=== PATIENT | female | born 1990 | race Caucasian/White ===

== ENCOUNTER → 2019-02-01 17:41 | Outpatient (CLI) | payer OTHER, SELFPAY ==
[2019-02-01 20:58] LABS: Urine N gonorrhoeae NOT DETECTED
[2019-02-01 21:00] LABS: Urine Chlamydia NOT DETECTED
== END ==
PROVIDERS: Visit Provider Physician Assistant
DX: N30.00 Acute cystitis without hematuria (principal); Z11.3 Encounter for screening for infections with a predominantly sexual mode of transmission
CPT/HCPCS: 87086; 87491; 87591

== ENCOUNTER 2019-05-10 18:41 | Emergency (ER) | payer OTHER, SELFPAY ==
[2019-05-10 19:35] VITALS: BP 121/77; PULSE 70; RESP 12; TEMP 36.4; O2SAT 99
--- NOTE | 2019-05-10 19:35 | ED_ITS ---
HPI - Female Genitourinary <Gisella Jennings PA-C - Last Filed: 05/10/19 20:30> General Chief complaint: Urogenital-Female Stated complaint: BLADDER INFECTION Time Seen by Provider: 05/10/19 18:49 Source: patient Mode of arrival: Ambulatory Limitations: no limitations History of Present Illness HPI Narrative: This healthy 29-year-old female comes to ED secondary to concern for recurrent UTI. Symptoms started late this afternoon and walk-in clinics in her were closed so came here. She states she initially had a sensation of incomplete void, then urinary urgency and frequency this afternoon which have persisted. She then began to have dysuria. She had intercourse a couple of days ago, denies any new discharge or STD concerns. She states she has had a little bit of chills and maybe some mild pain in her left flank since arrival but does not feel like previous kidney infections. She has not had nausea or vomiting. She denies fever. She did take some azo earlier. She denies possibility of , states she had negative test today. Related Data Previous Rx's Medication Instructions Recorded fluconazole 150 mg tablet 150 mg PO ONCE #2 tab 02/01/19 fluconazole [Diflucan] 150 mg PO Q3D #2 tab 05/10/19 nitrofurantoin macrocrystal 100 mg PO Q12H #10 cap 05/10/19 Allergies Allergy/AdvReac Type Severity Reaction Status Date / Time No Known Drug Allergies Allergy Verified 02/01/19 09:37 Review of Systems <Gisella Jennings PA-C - Last Filed: 05/10/19 20:30> Review of Systems ROS Unobtainable: All systems reviewed & are unremarkable except as noted in HPI and below Patient History <Gisella Jennings PA-C - Last Filed: 05/10/19 20:30> Medical History (Updated 05/10/19 @ 20:12 by Gisella Jennings PA-C) Healthy female adult (Chronic) Surgical History (Updated 05/10/19 @ 19:47 by Gisella Jennings PA-C) Status post knee surgery (Resolved) Smoking Status: Never smoker Exam <Gisella Jennings PA-C - Last Filed: 05/10/19 20:30> Narrative Exam Narrative: GENERAL APPEARANCE: Patient sitting comfortably, in no distress. LUNGS: Clear to auscultation bilaterally. HEART: Rate and rhythm regular without murmur, normal S1 and S2, no S3 or S4. ABDOMEN: Soft, moderate localized suprapubic tenderness, ND, +BS x 4 quadrants, no CVAT. Initial Vital Signs Initial Vital Signs: Vital Signs Temperature 97.5 F L 05/10/19 19:35 Pulse Rate 70 05/10/19 19:35 Respiratory Rate 12 05/10/19 19:35 Blood Pressure 121/77 05/10/19 19:35 Pulse Oximetry 99 05/10/19 19:35 <Tanesha Meng DO - Last Filed: 05/11/19 04:06> Initial Vital Signs Initial Vital Signs: Vital Signs Temperature 97.5 F L 05/10/19 19:35 Pulse Rate 70 05/10/19 19:35 Respiratory Rate 12 05/10/19 19:35 Blood Pressure 121/77 05/10/19 19:35 Pulse Oximetry 99 05/10/19 19:35 Course <Gisella Jennings PA-C - Last Filed: 05/10/19 20:30> Orders Ordered: ED Orders 05/10/19 19:37 Test Urine Stat 05/10/19 19:38 UA Complete [Urinalysis and Microscopic] Stat Urine Culture Stat Vital Signs Vital signs: Vital Signs - 8 hr 05/10/19 19:35 Temperature 97.5 F L Pulse Rate 70 Respiratory Rate 12 Blood Pressure 121/77 Pulse Oximetry 99 <Tanesha Meng DO - Last Filed: 05/11/19 04:06> Orders Ordered: ED Orders 05/10/19 19:37 Test Urine Stat 05/10/19 19:38 UA Complete [Urinalysis and Microscopic] Stat Urine Culture Stat Vital Signs Vital signs: Vital Signs - 8 hr 05/10/19 19:35 Temperature 97.5 F L Pulse Rate 70 Respiratory Rate 12 Blood Pressure 121/77 Pulse Oximetry 99 MDM - Female Genitourinary <SHADIA Fisher Last Filed: 05/10/19 20:30> Lab Data Attestation: I reviewed the patient's lab results. Labs: Lab Results 05/10/19 05/10/19 Range/Units 19:37 19:38 Urine Color Yellow Urine Appearance Clear Urine pH 7.0 (4.5-8.0) Ur Specific [place] <=1.005 (1.000-1.035) Urine Protein Negative (Negative) Urine Glucose (UA) Negative (Negative) g/dL Urine Ketones Negative (NEGATIVE) Urine Occult Blood 3+ H (Negative) Urine Nitrate Negative (Negative) Urine Bilirubin Negative (NEGATIVE) Urine Urobilinogen 0.2 (0.2) E.U./dL Ur Leukocyte Esterase 1+ H (NEGATIVE) Urine RBC 1-5/hpf (0-5/HPF) Urine WBC 10-30/hpf H (0-5/HPF) Ur Squamous Epith Cells 1-5 /hpf (0-5/HPF) Amorphous Sediment 1+ Urine Bacteria Moderate (10-30) H (None) Urine Mucus 1+ H (Negative) Ur Culture Indicated? Specimen cultured Urine Test Negative (Negative) <Tanesha Meng DO - Last Filed: 05/11/19 04:06> Lab Data Labs: Lab Results 05/10/19 05/10/19 Range/Units 19:37 19:38 Urine Color Yellow Urine Appearance Clear Urine pH 7.0 (4.5-8.0) Ur Specific [place] <=1.005 (1.000-1.035) Urine Protein Negative (Negative) Urine Glucose (UA) Negative (Negative) g/dL Urine Ketones Negative (NEGATIVE) Urine Occult Blood 3+ H (Negative) Urine Nitrate Negative (Negative) Urine Bilirubin Negative (NEGATIVE) Urine Urobilinogen 0.2 (0.2) E.U./dL Ur Leukocyte Esterase 1+ H (NEGATIVE) Urine RBC 1-5/hpf (0-5/HPF) Urine WBC 10-30/hpf H (0-5/HPF) Ur Squamous Epith Cells 1-5 /hpf (0-5/HPF) Amorphous Sediment 1+ Urine Bacteria Moderate (10-30) H (None) Urine Mucus 1+ H (Negative) Ur Culture Indicated? Specimen cultured Urine Test Negative (Negative) Discharge Plan Departure Patient Disposition: Home Clinical Impression: Urinary tract infection Qualifiers: Urinary tract infection type: acute cystitis Hematuria presence: without hematuria Qualified Code(s): N30.00 - Acute cystitis without hematuria Discharge Date/Time: 05/10/19 20:10 Instructions: DI for Urinary Tract Infection (UTI) Activity Restrictions/Additional Instructions: I have sent in a prescription to [facility] for you for nitrofurantoin (Macrobid) which is the same prescription as you had previously, since you thought it worked well for you. Please take the 1st dose as soon as you pick it up and take it for 5 days. I have also sent in a prescription for fluconazole for you case needed for yeast infection. As we talked about, you should return if you have any new symptoms such as vomiting, severe pain or high fever, and you should follow-up with your PCP in a few days if you are not significantly improved as the culture should be back by then. Since you already have the [id number] azo, 100 mg, you can take 2 of these every 8 hours if you need for pain for the next couple of days, which is equivalent to the prescription Pyridium you had previously. Prescriptions: New nitrofurantoin macrocrystal 100 mg capsule 100 mg PO Q12H Qty: 10 RF: 0 fluconazole [Diflucan] 150 mg tablet 150 mg PO Q3D Qty: 2 RF: 0 No Action fluconazole 150 mg tablet 150 mg PO ONCE Qty: 2 RF: 0
[2019-05-10 19:41] LABS: Appearance Urine UA CLEAR; Bilirubin Urine UA NEGATIVE (NEGATIVE); Color Urine UA YELLOW; Glucose Urine UA NEGATIVE (Negative); Ketones Urine UA NEGATIVE (NEGATIVE); Leukocyte Esterase Urine UA 1+ (NEGATIVE); Nitrite Urine UA NEGATIVE (Negative); Occult Blood Urine UA 3+ (Negative); Protein Urine UA NEGATIVE (Negative); Specific Gravity Urine UA <=1.005 (1.000-1.035); Urobilinogen Urine UA 0.2 E.U./dL (0.2)
[2019-05-10 19:47] LABS: Amorphous Sediment Urine 1+; RBC Urine 1-5/HPF (0-5/HPF); Squamous Epithelial Cell Urine 1-5 /HPF (0-5/HPF); WBC Urine 10-30/HPF (0-5/HPF)
[2019-05-10 19:48] LABS: Pregnancy Test Urine Negative (Negative)
[2019-05-10 19:48] LABS: Bacteria Urine Moderate (10-30); Culture Indicated Urine Specimen Cultured; Mucus Urine 1+ (Negative)
== END 2019-05-10 20:10 | disposition home or self-care (01) ==
PROVIDERS: Emergency Provider Internal Medicine
DX: N30.00 Acute cystitis without hematuria (principal)
CPT/HCPCS: 81001; 81025; 87077; 87086; 87186; 99282; 99283